=== PATIENT | male | born 1975 | race Caucasian/White ===

== ENCOUNTER 2022-10-23 01:22 | Inpatient (IN) | payer OTHER ==
[~2022-10-23] VITALS: Ht 172.7 cm; Wt 65.0 kg
[2022-10-23] VITALS (20 sets, daily range): BP systolic 101–140; BP diastolic 52–94
[~2022-10-23 01:22] MED LIST: HEPARIN SOD PORK IV ONE; NACL IV ONE; aspirin 81mg tab.chew ONE; heparin 10,000 units/1 ML INJ ONE; nitroGLYCERIN 0.4mg SUBLingual tab SL ONE; nitroGLYCERIN in D5W 50mg/250ml (Tridil) infusion IV ONE
[2022-10-23] MEDS ORDERED: heparin 10,000 units/1 ML INJ IV ONE (01:45)
[2022-10-23] MEDS ORDERED: heparin 10,000 units/1 ML INJ IV PRN (01:45)
[2022-10-23] MEDS ORDERED: heparin 25,000 UNIT/250ml bag 250 ML IV PRN (01:45)
[2022-10-23] MEDS: nitroGLYCERIN 0.4mg SUBLingual tab SL PRN ×3 (01:57→02:08)
[2022-10-23] MEDS ORDERED: NO HOME MEDS (01:57)
[2022-10-23] MEDS ORDERED: morphine 4 MG/ML inj SYRINge IV STA (01:59)
[2022-10-23] MEDS ORDERED: morphine 4 MG/ML inj SYRINge ONE (02:00)
[2022-10-23 02:03] LABS: BASOPHILS # (AUTO) 0.1 X10'3 (0-0.2); BASOPHILS % (AUTO) 0.5 % (0-1); EOSINOPHILS # (AUTO) 1.2 X10'3 (0-0.9); EOSINOPHILS % (AUTO) 7.9 % (0-6); HEMATOCRIT 45.6 % (42.0-52.0); HEMOGLOBIN 15.7 g/dl (14.0-17.9); MEAN CORPUSCULAR HEMOGLOBIN 32.7 PG (27.0-31.0); MEAN CORPUSCULAR HGB CONC 34.3 g/dL (33.0-36.5); MEAN CORPUSCULAR VOLUME 95.2 FL (78-98); MEAN PLATELET VOLUME 8.2 FL (7.4-10.4); MONOCYTES # (AUTO) 1.3 X10'3 (0-0.9); NEUTROPHILS # (AUTO) 7.2 X10'3 (1.8-7.7); NEUTROPHILS % (AUTO) 48.6 % (42-75); PLATELET COUNT 297 X10'3 (140-440); RED BLOOD COUNT 4.79 X10'6 (4.70-6.10); RED CELL DISTRIBUTION WIDTH 13.1 % (11.5-14.5); WHITE BLOOD COUNT 14.7 X10'3 (4.5-11.0)
[2022-10-23] MEDS ORDERED: nitroGLYCERIN-Tridil 50MG/D5W 250 ML IV PRN (02:05)
[2022-10-23] MEDS ORDERED: ondansetron/PF 4mg/2ml inj IV PRN (02:10)
[2022-10-23] MEDS ORDERED: magnesium Cl slow-release 64mg tablet PO PRN (02:10)
[2022-10-23] MEDS ORDERED: magnesium hydroxide 30ml (MOM) UD suspension PO PRN (02:10)
[2022-10-23] MEDS ORDERED: normal saline 1000ml 1,000 ML IV SCH ×2 (02:10→04:55)
[2022-10-23] MEDS ORDERED: potassium Cl 40MEQ/1/2NS 520ml 520 ML IV PRN (02:10)
[2022-10-23] MEDS ORDERED: acetaminophen 325mg tablet PO PRN ×2 (02:10)
[2022-10-23] MEDS ORDERED: HYDROcodone/acetaminophen 5mg/325mg tablet PO PRN (02:10)
[2022-10-23] MEDS ORDERED: HYDROcodone/acetaminophen 10/325mg tab PO PRN ×3 (02:10→04:50)
[2022-10-23] MEDS ORDERED: morphine 2 MG/ML inj. syringe IV PRN ×2 (02:10)
[2022-10-23] MEDS ORDERED: mag hydrox/Alum hydrox/simeth 30ml oral suspension PO PRN (02:10)
[2022-10-23] MEDS ORDERED: potassium Cl 20 mEq SR tablet PO PRN (02:10)
[2022-10-23] MEDS ORDERED: magnesium 4gm in 100ml NS 100 ML IV PRN (02:10)
[2022-10-23] MEDS ORDERED: ondansetron 4mg rapidly disintigrating tab PO PRN (02:10)
[2022-10-23] MEDS ORDERED: acetaminophen 650mg rectal suppository RC PRN (02:10)
[2022-10-23 02:12] LABS: APTT 31 SECONDS (22-32)
[2022-10-23 02:14] LABS: ALANINE AMINOTRANSFERASE 24 U/L (12-78); ALBUMIN 4.2 G/DL (3.4-5.0); ALBUMIN/GLOBULIN RATIO 1.1 (1.1-1.5); ALKALINE PHOSPHATASE 92 IU/L (46-116); ANION GAP 7 (8-16); ASPARTATE AMINO TRANSFERASE 21 U/L (10-37); BILIRUBIN,TOTAL 0.3 MG/DL (0.1-1.0); BLOOD UREA NITROGEN 18 MG/DL (7-18); BUN/CREATININE RATIO 17.5 (5.4-32.0); CHLORIDE 102 MMOL/L (99-107); CREATININE 1.03 MG/DL (0.60-1.10); GLUCOSE 132 MG/DL (70-104); POTASSIUM 3.8 MMOL/L (3.5-5.1); SODIUM 139 MMOL/L (135-145); TOTAL CARBON DIOXIDE 29.6 MMOL/L (24-32); eGFR 77 ML/MIN
--- NOTE | 2022-10-23 02:16 | NUR ---
going to [employer] business representative with dr Bentley
[2022-10-23] MEDS ORDERED: fentaNYL/PF 50MCG/1 ML 2ML syringe ONE (02:19)
[2022-10-23] MEDS ORDERED: heparin 25,000 UNIT/250ml bag 0 ML IV ONE (02:19)
[2022-10-23] MEDS ORDERED: midazolam 1 mg/ML 2ml injection ONE (02:19)
[2022-10-23] MEDS ORDERED: nitroGLYCERIN-Tridil 50MG/D5W 250 ML IV ONE (02:19)
[2022-10-23] MEDS ORDERED: verapamil 2.5 mg/ml inj IV ONE (02:19)
[2022-10-23] MEDS ORDERED: heparin 1,000unit/ml 10ml vial 10 ML ONE (02:20)
[2022-10-23] MEDS ORDERED: LIDOcaine 1% 30ml preserv. free vial ONE (02:20)
[2022-10-23] MEDS ORDERED: iohexol 350MG/ML 100ml bottle IV ONE ×2 (02:20→02:46)
[2022-10-23 02:21] LABS: MAGNESIUM 2.2 MG/DL (1.5-2.4)
[2022-10-23] MEDS ORDERED: metoprolol tartrate 1mg/ml inj IV ONE (02:48)
[2022-10-23] MEDS ORDERED: amiodarone 50MG/ML inj IV ONE (02:48)
[2022-10-23] MEDS ORDERED: ticagrelor 90mg tablet ONE (03:42)
[2022-10-23] MEDS ORDERED: iohexol 350 MG/ML 50ML vial IV ONE (03:45)
--- NOTE | 2022-10-23 04:30 | NUR ---
Admission -Pt admitted from lab intern, alert and oriented, pleasant and cooperative. Right groin sheath without bleeding, swelling or hematoma. Bilateral pedal pulses strong. Pt's and daughter at bedside.
[2022-10-23] MEDS ORDERED: OXAZEpam 15mg capsule PO PRN (04:50)
[2022-10-23] MEDS ORDERED: cyclobenzaprine 10mg tablet PO PRN (04:50)
[2022-10-23 05:48] LABS: BASOPHILS # (AUTO) 0.1 X10'3 (0-0.2); BASOPHILS % (AUTO) 0.5 % (0-1); EOSINOPHILS # (AUTO) 0.1 X10'3 (0-0.9); EOSINOPHILS % (AUTO) 0.7 % (0-6); HEMATOCRIT 39.4 % (42.0-52.0); HEMOGLOBIN 13.6 g/dl (14.0-17.9); LYMPHOCYTES # (AUTO) 1.2 X10'3 (1.1-4.8); MEAN CORPUSCULAR HEMOGLOBIN 32.2 PG (27.0-31.0); MEAN CORPUSCULAR HGB CONC 34.4 g/dL (33.0-36.5); MEAN CORPUSCULAR VOLUME 93.5 FL (78-98); MEAN PLATELET VOLUME 8.9 FL (7.4-10.4); MONOCYTES # (AUTO) 0.4 X10'3 (0-0.9); MONOCYTES % (AUTO) 2.9 % (2-12); NEUTROPHILS # (AUTO) 11.9 X10'3 (1.8-7.7); NEUTROPHILS % (AUTO) 86.9 % (42-75); PLATELET COUNT 251 X10'3 (140-440); RED BLOOD COUNT 4.22 X10'6 (4.70-6.10); RED CELL DISTRIBUTION WIDTH 12.8 % (11.5-14.5); WHITE BLOOD COUNT 13.6 X10'3 (4.5-11.0)
[2022-10-23 06:09] LABS: ALBUMIN 3.6 G/DL (3.4-5.0); ANION GAP 7 (8-16); BLOOD UREA NITROGEN 14 MG/DL (7-18); BUN/CREATININE RATIO 19.7 (5.4-32.0); CALCIUM 8.3 MG/DL (8.5-10.1); CHLORIDE 104 MMOL/L (99-107); CREATININE 0.71 MG/DL (0.60-1.10); GLUCOSE 118 MG/DL (70-104); PHOSPHORUS 2.3 MG/DL (2.3-4.5); POTASSIUM 3.6 MMOL/L (3.5-5.1); SODIUM 136 MMOL/L (135-145); TOTAL CARBON DIOXIDE 25.5 MMOL/L (24-32); eGFR > 90 ML/MIN
[2022-10-23] MEDS: potassium Cl 20 mEq SR tablet PO PRN ×3 (07:42→13:40)
[2022-10-23] MEDS: aspirin 81mg tab.chew PO SCH (07:42)
[2022-10-23] MEDS: metoprolol succinate 25mg (24-HOUR) SR. Tablet PO SCH (07:42)
[2022-10-23] MEDS: lisinopril 5mg tablet PO SCH (07:43)
[2022-10-23] MEDS: atorvastatin 20mg tablet PO SCH (07:43)
[2022-10-23] MEDS: docusate sod 100mg capsule PO SCH ×2 (07:43→19:59)
[2022-10-23] MEDS: K and/or MAG REPLACEMENT MC SCH ×2 (08:00→18:39)
--- NOTE | 2022-10-23 09:00 | NUR ---
Dr. Chi aware of patient's 7 and 8 beat runs of vtach this AM. Orders for 40meq kdur now and 2g magnesium now. Okay to d/c sheath with ACT 161. Check troponin now and in AM.
[2022-10-23] MEDS ORDERED: magnesium 2GM in 50ml NS 50 ML IV ONE (09:15)
[2022-10-23] MEDS ORDERED: diazepam 5mg tablet PO PRN (13:15)
--- NOTE | 2022-10-23 18:14 | NUR ---
Problems reprioritized. Patient report given, questions answered & plan of care reviewed with Mac RN.
[2022-10-23] MEDS: ticagrelor 90mg tablet PO SCH (20:00)
[2022-10-24] VITALS (12 sets, daily range): BP systolic 93–115; BP diastolic 63–82
--- NOTE | 2022-10-24 05:00 | NUR ---
Pt reports resting comfortably without pain or nausea.
[2022-10-24 06:19] LABS: BASOPHILS % (AUTO) 0.3 % (0-1); EOSINOPHILS # (AUTO) 0.2 X10'3 (0-0.9); LYMPHOCYTES # (AUTO) 2.2 X10'3 (1.1-4.8); LYMPHOCYTES % (AUTO) 14.2 % (21-51); MEAN CORPUSCULAR HEMOGLOBIN 32.2 PG (27.0-31.0); MEAN CORPUSCULAR HGB CONC 34.1 g/dL (33.0-36.5); MEAN CORPUSCULAR VOLUME 94.4 FL (78-98); MEAN PLATELET VOLUME 8.5 FL (7.4-10.4); MONOCYTES # (AUTO) 1.1 X10'3 (0-0.9); MONOCYTES % (AUTO) 7.4 % (2-12); NEUTROPHILS # (AUTO) 11.8 X10'3 (1.8-7.7); NEUTROPHILS % (AUTO) 77.1 % (42-75); PLATELET COUNT 263 X10'3 (140-440); RED BLOOD COUNT 4.65 X10'6 (4.70-6.10); RED CELL DISTRIBUTION WIDTH 13.2 % (11.5-14.5); WHITE BLOOD COUNT 15.3 X10'3 (4.5-11.0)
[2022-10-24 06:33] LABS: ALANINE AMINOTRANSFERASE 33 U/L (12-78); ALBUMIN 3.8 G/DL (3.4-5.0); ALBUMIN/GLOBULIN RATIO 1.1 (1.1-1.5); ALKALINE PHOSPHATASE 75 IU/L (46-116); ANION GAP 6 (8-16); ASPARTATE AMINO TRANSFERASE 69 U/L (10-37); BILIRUBIN,TOTAL 1.2 MG/DL (0.1-1.0); BLOOD UREA NITROGEN 9 MG/DL (7-18); BUN/CREATININE RATIO 10.1 (5.4-32.0); CALCIUM 8.8 MG/DL (8.5-10.1); CHLORIDE 103 MMOL/L (99-107); CHOLESTEROL 190 MG/DL (0-200); CREATININE 0.89 MG/DL (0.60-1.10); GLUCOSE 119 MG/DL (70-104); HDL CHOLESTEROL 47 MG/DL (35-60); LDL CHOLESTEROL 129 MG/DL (50-100); POTASSIUM 3.9 MMOL/L (3.5-5.1); SODIUM 136 MMOL/L (135-145); TOTAL PROTEIN 7.3 G/DL (6.4-8.2); TRIGLYCERIDES 97 MG/DL (20-135); eGFR > 90 ML/MIN
[2022-10-24] MEDS: atorvastatin 20mg tablet PO SCH (07:42)
[2022-10-24] MEDS: ticagrelor 90mg tablet PO SCH (07:42)
[2022-10-24] MEDS: lisinopril 5mg tablet PO SCH (07:43)
[2022-10-24] MEDS: docusate sod 100mg capsule PO SCH (07:44)
[2022-10-24] MEDS: aspirin 81mg tab.chew PO SCH (07:44)
[2022-10-24] MEDS: metoprolol succinate 25mg (24-HOUR) SR. Tablet PO SCH (07:44)
[2022-10-24] MEDS ORDERED: LISI5TAB22 PO (09:47)
[2022-10-24] MEDS ORDERED: METO-395 PO (09:47)
[2022-10-24] MEDS ORDERED: TICA90TA PO (09:47)
[2022-10-24] MEDS ORDERED: ASPI81TA53 PO (09:47)
[2022-10-24] MEDS ORDERED: ATOR80TA PO (09:47)
== END 2022-10-24 15:30 | disposition home or self-care (01) | DRG 246 ==
LOC: ER 01:23 → CICU 2S 02:14
PROVIDERS: ADMIT Family Medicine; ATTEND Family Medicine
PROC: 4A023N7 Measurement of Cardiac Sampling and Pressure, Left Heart, Percutaneous Approach (ICD-10-PCS; principal; 2022-10-23)
PROC: 027035Z Dilation of Coronary Artery, One Artery with Two Drug-eluting Intraluminal Devices, Percutaneous Approach (ICD-10-PCS; 2022-10-23)
PROC: B2111ZZ Fluoroscopy of Multiple Coronary Arteries using Low Osmolar Contrast (ICD-10-PCS; 2022-10-23)
PROC: B2151ZZ Fluoroscopy of Left Heart using Low Osmolar Contrast (ICD-10-PCS; 2022-10-23)
DX: I21.3 ST elevation (STEMI) myocardial infarction of unspecified site (principal); I50.21 Acute systolic (congestive) heart failure; D72.823 Leukemoid reaction; M25.511 Pain in right shoulder; E78.00 Pure hypercholesterolemia, unspecified; M25.512 Pain in left shoulder; F17.210 Nicotine dependence, cigarettes, uncomplicated; F41.9 Anxiety disorder, unspecified; Z79.82 Long term (current) use of aspirin; Z82.49 Family history of ischemic heart disease and other diseases of the circulatory system; Z88.0 Allergy status to penicillin; Z71.6 Tobacco abuse counseling
CPT/HCPCS: 93306; 93458; 96365; 96367; 96376; 99291; C9606; 36415; 71045; 80048; 80053; 80061; 83735; 83880; 84100; 84484; 85025; 85347; 85610; 85730; 87081; 93005; 97161; 97530; 99152; 99153; A4615; A6213; A6258; A6449; C1725; C1751; C1769; C1874; C1894; G0378; J0282; J1644; J2250; J2270; J2405; J3010; J3475; J3490; J7030; Q9967

== ENCOUNTER 2022-10-29 08:30 | Emergency (ER) | payer OTHER ==
[~2022-10-29] VITALS: Ht 172.7 cm; Wt 70.5 kg
[~2022-10-29 08:30] MED LIST changes: +ASPI81TA53 PO; +ATOR80TA PO; -HEPARIN SOD PORK IV ONE; +LISI5TAB22 PO; +METO-395 PO; -NACL IV ONE; +NO HOME MEDS; +TICA90TA PO; -aspirin 81mg tab.chew ONE; -heparin 10,000 units/1 ML INJ ONE; -nitroGLYCERIN 0.4mg SUBLingual tab SL ONE; -nitroGLYCERIN in D5W 50mg/250ml (Tridil) infusion IV ONE
[2022-10-29 08:32] VITALS: BP 160/97
--- NOTE | 2022-10-29 08:45 | NUR ---
OLIVER SOSA MADE AWARE OF PATIENT STATUS AT THIS TIME. NO NEW ORDERS.
[2022-10-29] MEDS ORDERED: TRAM50TA2 PO (09:14)
[2022-10-29] MEDS ORDERED: traMADol 50MG tablet PO ONE (09:15)
--- NOTE | 2022-10-29 09:48 | NUR ---
Unable to scan medication. Medication verified by Radha ARMSTRONG.
== END 2022-10-29 09:51 | disposition home or self-care (01) ==
LOC: ER 08:31
DX: M25.511 Pain in right shoulder (principal); I25.2 Old myocardial infarction; Z72.89 Other problems related to lifestyle; Z88.0 Allergy status to penicillin; Z79.82 Long term (current) use of aspirin; Z79.899 Other long term (current) drug therapy
CPT/HCPCS: 99283

== ENCOUNTER 2023-02-22 14:03 | Emergency (ER) | payer OTHER ==
[~2023-02-22] VITALS: Ht 172.7 cm; Wt 72.7 kg
[~2023-02-22 14:03] MED LIST changes: -ATOR80TA PO; +TRAM50TA2 PO
--- NOTE | 2023-02-22 14:20 | NUR ---
UNABLE TO OBTAIN AN ORAL OR AXILLARY TEMP, FOREHEAD TEMP WAS 95.1
[2023-02-22] MEDS ORDERED: normal saline 1000ML IV soln IVB ONE (15:15)
[2023-02-22 15:39] VITALS: BP 136/85; PULSE 68; TEMP 97.8; O2SAT 99
[2023-02-22 15:44] VITALS: RESP 18
[2023-02-22 16:07] LABS: BASOPHILS % (AUTO) 0.3 % (0-1); EOSINOPHILS # (AUTO) 0.2 X10'3 (0-0.9); EOSINOPHILS % (AUTO) 1.1 % (0-6); HEMATOCRIT 44.4 % (42.0-52.0); LYMPHOCYTES # (AUTO) 1.2 X10'3 (1.1-4.8); LYMPHOCYTES % (AUTO) 8.1 % (21-51); MEAN CORPUSCULAR HEMOGLOBIN 31.9 PG (27.0-31.0); MEAN CORPUSCULAR HGB CONC 33.7 g/dL (33.0-36.5); MEAN CORPUSCULAR VOLUME 94.4 FL (78-98); MEAN PLATELET VOLUME 8.3 FL (7.4-10.4); MONOCYTES # (AUTO) 0.8 X10'3 (0-0.9); MONOCYTES % (AUTO) 5.3 % (2-12); NEUTROPHILS # (AUTO) 13.1 X10'3 (1.8-7.7); NEUTROPHILS % (AUTO) 85.2 % (42-75); PLATELET COUNT 279 X10'3 (140-440); RED CELL DISTRIBUTION WIDTH 13.3 % (11.5-14.5); WHITE BLOOD COUNT 15.4 X10'3 (4.5-11.0)
[2023-02-22 16:23] LABS: ALANINE AMINOTRANSFERASE 46 U/L (12-78); ALBUMIN 4.9 G/DL (3.4-5.0); ALBUMIN/GLOBULIN RATIO 1.4 (1.1-1.5); ALKALINE PHOSPHATASE 92 IU/L (46-116); ANION GAP 9 (8-16); ASPARTATE AMINO TRANSFERASE 29 U/L (10-37); BILIRUBIN,TOTAL 1.2 MG/DL (0.1-1.0); BLOOD UREA NITROGEN 10 MG/DL (7-18); CALCIUM 9.3 MG/DL (8.5-10.1); CHLORIDE 100 MMOL/L (99-107); CREATININE 0.83 MG/DL (0.60-1.10); GLUCOSE 99 MG/DL (70-104); POTASSIUM 3.7 MMOL/L (3.5-5.1); SODIUM 137 MMOL/L (135-145); TOTAL CARBON DIOXIDE 28.3 MMOL/L (24-32); TOTAL PROTEIN 8.4 G/DL (6.4-8.2); eGFR > 90 ML/MIN
[2023-02-22 16:26] LABS: LIPASE 53 U/L (73-393); MAGNESIUM 2.3 MG/DL (1.5-2.4)
[2023-02-22 17:07] LABS: CLARITY,URINE CLEAR (Clear); COLOR,URINE YELLOW (Yellow); GLUCOSE, URINE NEGATIVE (Neg); KETONES,URINE >=80 mg/dl (Neg); LEUKOCYTE ESTERASE ,URINE NEGATIVE (Neg); NITRITES, URINE NEGATIVE (Neg); OCCULT BLOOD,URINE NEGATIVE (Neg); PH,URINE 5.5 (4.8-8.0); PROTEIN,URINE NEGATIVE (Neg); UA COLLECTION TYPE CLN CATCH MIDSTREAM; UROBILINOGEN,URINE 0.2 E.U/dL (0.2-1.0)
--- NOTE | 2023-02-22 19:31 | NUR ---
IV DC'D PT BEING DISCHARGED DRESSING APPLIED
== END 2023-02-22 19:33 | disposition home or self-care (01) ==
LOC: ER 14:04
DX: R11.0 Nausea (principal); Z20.822 Contact with and (suspected) exposure to COVID-19; R61 Generalized hyperhidrosis; R09.81 Nasal congestion; I11.9 Hypertensive heart disease without heart failure; R09.89 Other specified symptoms and signs involving the circulatory and respiratory systems; E78.00 Pure hypercholesterolemia, unspecified; Z88.0 Allergy status to penicillin; Z79.1 Long term (current) use of non-steroidal anti-inflammatories (NSAID); Z79.899 Other long term (current) drug therapy
CPT/HCPCS: 36415; 71046; 80053; 81003; 83605; 83690; 83735; 84484; 85025; 87040; 87811; 93005; 99285; J7030

== ENCOUNTER 2023-04-05 01:49 | Emergency (ER) | payer OTHER ==
[~2023-04-05] VITALS: Ht 172.7 cm; Wt 70.3 kg
[2023-04-05 04:38] LABS: BASOPHILS # (AUTO) 0.1 X10'3 (0-0.2); BASOPHILS % (AUTO) 0.7 % (0-1); EOSINOPHILS # (AUTO) 0.7 X10'3 (0-0.9); EOSINOPHILS % (AUTO) 8.1 % (0-6); HEMATOCRIT 43.6 % (42.0-52.0); HEMOGLOBIN 14.4 g/dl (14.0-17.9); LYMPHOCYTES # (AUTO) 2.5 X10'3 (1.1-4.8); LYMPHOCYTES % (AUTO) 28.2 % (21-51); MEAN CORPUSCULAR HEMOGLOBIN 31.5 PG (27.0-31.0); MEAN CORPUSCULAR HGB CONC 33.1 g/dL (33.0-36.5); MEAN CORPUSCULAR VOLUME 95.3 FL (78-98); MEAN PLATELET VOLUME 8.2 FL (7.4-10.4); MONOCYTES # (AUTO) 0.9 X10'3 (0-0.9); MONOCYTES % (AUTO) 10.1 % (2-12); NEUTROPHILS # (AUTO) 4.7 X10'3 (1.8-7.7); NEUTROPHILS % (AUTO) 52.9 % (42-75); PLATELET COUNT 252 X10'3 (140-440); RED BLOOD COUNT 4.58 X10'6 (4.70-6.10); RED CELL DISTRIBUTION WIDTH 13.1 % (11.5-14.5); WHITE BLOOD COUNT 8.9 X10'3 (4.5-11.0)
[2023-04-05 04:40] LABS: D-DIMER < 0.19 MG/L FEU (0-0.50)
[2023-04-05 04:43] LABS: ALANINE AMINOTRANSFERASE 36 U/L (12-78); ALBUMIN 4.1 G/DL (3.4-5.0); ALBUMIN/GLOBULIN RATIO 1.2 (1.1-1.5); ALKALINE PHOSPHATASE 76 IU/L (46-116); ANION GAP 10 (8-16); ASPARTATE AMINO TRANSFERASE 23 U/L (10-37); BILIRUBIN,TOTAL 0.8 MG/DL (0.1-1.0); BLOOD UREA NITROGEN 17 MG/DL (7-18); CALCIUM 8.8 MG/DL (8.5-10.1); CHLORIDE 103 MMOL/L (99-107); CREATININE 0.85 MG/DL (0.60-1.10); GLUCOSE 91 MG/DL (70-104); SODIUM 140 MMOL/L (135-145); TOTAL CARBON DIOXIDE 26.8 MMOL/L (24-32); TOTAL PROTEIN 7.5 G/DL (6.4-8.2); eGFR > 90 ML/MIN
[2023-04-05 04:50] LABS: MAGNESIUM 2.2 MG/DL (1.5-2.4)
[2023-04-05] MEDS ORDERED: ipratropium/albuterol 3ml nebule NEB ONE (05:00)
[2023-04-05] MEDS ORDERED: ALBU18HF2 INH (05:39)
[2023-04-05 05:49] VITALS: BP 126/79
== END 2023-04-05 05:50 | disposition home or self-care (01) ==
LOC: ER 01:49
DX: J45.909 Unspecified asthma, uncomplicated (principal); I11.0 Hypertensive heart disease with heart failure; I50.9 Heart failure, unspecified; E78.00 Pure hypercholesterolemia, unspecified; Z88.0 Allergy status to penicillin; Z79.82 Long term (current) use of aspirin; Z79.899 Other long term (current) drug therapy
CPT/HCPCS: 36415; 71045; 80053; 83735; 83880; 84484; 85025; 85379; 93005; 94640; 94760; 99285

== ENCOUNTER 2023-12-09 11:46 | Emergency (ER) | payer OTHER ==
[~2023-12-09] VITALS: Ht 172.7 cm; Wt 72.7 kg
[~2023-12-09 11:46] MED LIST changes: +ALBU18HF2 INH
[2023-12-09 11:59] VITALS: BP 135/83; PULSE 66; RESP 18; TEMP 97; O2SAT 98
== END 2023-12-10 00:17 | disposition left against medical advice (07) ==
LOC: ER 11:47
DX: M70.921 Unspecified soft tissue disorder related to use, overuse and pressure, right upper arm (principal); I11.0 Hypertensive heart disease with heart failure; I50.9 Heart failure, unspecified; E78.00 Pure hypercholesterolemia, unspecified; Z88.0 Allergy status to penicillin; Z79.899 Other long term (current) drug therapy; Z79.82 Long term (current) use of aspirin
CPT/HCPCS: 99281; 99282